=== PATIENT | female | born 1990 | race Caucasian/White ===

== ENCOUNTER → 2024-12-31 07:23 | Outpatient (REF) | payer BC, SELFPAY | LOC: RAD 07:23 | PROVIDERS: ATTENDING PHYSICIAN Student in an Organized Health Care Education/Training Program; FAMILY PHYSICIAN Family Medicine | DX: K56.41 Fecal impaction (principal); K58.9 Irritable bowel syndrome, unspecified; K58.1 Irritable bowel syndrome with constipation | CPT/HCPCS: 74018 ==

== ENCOUNTER 2025-02-10 06:14 | Day surgery (SDC) | payer BC, SELFPAY | END 2025-02-10 10:44 | disposition home or self-care (01) | LOC: GI 06:14 | PROVIDERS: ATTENDING PHYSICIAN Student in an Organized Health Care Education/Training Program | DX: R19.4 Change in bowel habit (principal); R93.3 Abnormal findings on diagnostic imaging of other parts of digestive tract; R10.84 Generalized abdominal pain; K64.8 Other hemorrhoids; R11.2 Nausea with vomiting, unspecified; R14.0 Abdominal distension (gaseous); R13.10 Dysphagia, unspecified; K62.5 Hemorrhage of anus and rectum; K63.89 Other specified diseases of intestine; K31.89 Other diseases of stomach and duodenum | CPT/HCPCS: 45380; 43239; 88305; 88342 ==